=== PATIENT | male | born 1995 | race Caucasian/White ===

== ENCOUNTER 2024-06-28 20:05 | Emergency (ER) | payer BC, OTHER ==
[2024-06-28 20:15] VITALS: BP 134/67; PULSE 63; RESP 18; TEMP 98.1; BMI 28.0
[2024-06-28] MEDS ORDERED: IBUPROFEN 600 MG TABLET (FP) PO ONE (20:47)
[2024-06-28] MEDS: IBUPROFEN 600 MG TABLET (FP) PO ONE (20:49)
== END 2024-06-28 21:45 | disposition home or self-care (01) ==
LOC: FER 20:05
DX: S93.401A Sprain of unspecified ligament of right ankle, initial encounter (principal); S93.601A Unspecified sprain of right foot, initial encounter; X50.1XXA Overexertion from prolonged static or awkward postures, initial encounter; Y92.39 Other specified sports and athletic area as the place of occurrence of the external cause
CPT/HCPCS: 73562-TC-RT-FY; 73610-TC-RT-FY; 73630-TC-RT-FY; 99284-25